=== PATIENT | female | born 1955 | race Hispanic/Latino ===

== ENCOUNTER 2017-03-07 12:41 | Emergency (ER) | payer BC, OTHER ==
[2017-03-07] MEDS ORDERED: Ondansetron HCl/PF 4 MG/2 ML Vial ONE (13:14)
[2017-03-07 13:29] LABS: Bilirubin Negative (Negative); Blood, Urine Large (Negative); Glucose, Urine (Dipstick) Negative (Negative); Leukocyte Negative (Negative); Nitrite Negative (Negative); Protein, Urine (Dipstick) 30 mg/dL (Neg-Trace); Specific Gravity, Urine 1.025 (1.005-1.030); Urobilinogen 0.2 mg/dL (0.2-1.0)
[2017-03-07 13:44] LABS: ALT (SGPT) 32 U/L (8-55); AST (SGOT) 22 U/L (5-34); Albumin 3.9 g/dL (3.4-4.8); Alkaline Phosphatase 66 U/L (40-150); Anion Gap 18 mmol/L (10-20); BUN (Urea Nitrogen) 15 mg/dL (9.8-20.1); Bilirubin, Total 0.5 mg/dL (0.2-1.2); Calc. Creatinine Clearance 0 mL/min (70-130); Calcium 9.1 mg/dL (7.8-10.44); Carbon Dioxide 20 mmol/L (23-31); Chloride 105 mmol/L (98-107); Estimated GFR-MDRD 69; Globulin 3.4 g/dL (2.4-3.5); Glucose 134 mg/dL (80-115); Lipase 35 U/L (8-78); Protein, Total 7.3 g/dL (6.0-8.3); Sodium 139 mmol/L (136-145)
[2017-03-07 13:52] LABS: Clarity SL HAZY (Clear)
[2017-03-07 13:54] LABS: RBC/HPF GREATER THAN 50-TNTC HPF (0-3); WBC/HPF 0-3 HPF (0-3)
[2017-03-07 13:55] LABS: Bacteria/HPF 2+ HPF (None Seen); Squamous Epithelial 0-3 HPF (0-3)
--- NOTE | 2017-03-07 14:05 | RAD ---
AP VIEW CHEST SUPINE AND UPRIGHT VIEWS OF ABDOMEN: Date: 03/07/17 HISTORY: Abdominal pain. FINDINGS: AP view of chest, as well as supine and upright views of abdomen obtained. The lungs are well aerated. No evidence of active intrathoracic disease seen. No evidence of effusion s, pneumonia, or pneumothorax seen. A small right upper lobe granuloma is present. Two views of abdomen demonstrate multilevel lumbar osteophytes and degenerative changes. Abdominal gas pattern is nonspecific. No evidence of obstruction or ileus seen. No dilated loops of b owel seen. IMPRESSION: 1. No evidence of acute intrathoracic abnormalities. 2. Unremarkable 2 views abdomen. POS: [facility]
[2017-03-07 14:18] LABS: Lymphocytes 20 % (21-51); MDiff Complete? YES; Mean Corpuscular HGB CONC 33.6 g/dL (32.0-36.0); Mean Corpuscular Hemoglobin 29.4 pg (27.0-31.0); Mean Corpuscular Volume 87.5 fl (81.0-99.0); Mean Platelet Volume 8.5 fL (7.4-10.4); Monocytes 4 % (0-10); Neutrophil 76 % (42-75); Platelet Count 291 thou/uL (130-400); RBC Distribution Width 11.5 % (11.5-14.5); Red Blood Cell (RBC) Count 4.43 mill/uL (4.20-5.40); White Blood Cell (WBC) Count 7.8 thou/uL (4.8-10.8)
[2017-03-07] MEDS ORDERED: Ketorolac Tromethamine 30 MG/ML VIAL ONE (14:25)
[2017-03-07] MEDS ORDERED: Sodium Chloride 0.9% 1,000 ML ONE (14:26)
--- NOTE | 2017-03-07 15:07 | CT ---
NONCONTRAST ENHANCED CT IMAGES OF ABDOMEN AND PELVIS: Date: 03/07/17 HISTORY: abdominal pain in the right lower quadrant. FINDINGS: Noncontrast enhanced CT images of the abdomen and pelvis obtained. The lung bases demonstrate some mild areas of atelectasis. No evidence of free intraperitoneal air is seen. The liver, spleen, gallbladder, and pancreas are unremarkable. Adrenal glands are unremarkable. The l eft kidney is unremarkable. The right kidney demonstrates a moderate degree of hydronephrosis with some fat stranding surrounding it. There is an approximately 6.0 mm proximal right ureteral calculus, which is in the proximal most aspect of the ureter resulting in right-sided hydroureteronephrosis. The small bowel is unremarkable . No evidence of colonic distention is seen. IMPRESSION: Obstructing proximal right renal calculus. POS: [facility]
== END 2017-03-07 15:24 | disposition home or self-care (01) ==
LOC: NAV ERS 12:41
DX: N13.2 Hydronephrosis with renal and ureteral calculous obstruction (principal); M19.90 Unspecified osteoarthritis, unspecified site
CPT/HCPCS: 74022; 74176; 80053; 81003; 81015; 83690; 85025; 96361; 96374; 96375; 96376; J1885; J2270; J2405; J7050

== ENCOUNTER 2017-05-03 09:55 | Emergency (ER) | payer OTHER, SELFPAY ==
[2017-05-03] MEDS ORDERED: Acetaminophen/Codeine 30-300mg Tablet ONE (10:27)
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
== END 2017-05-03 11:40 | disposition home or self-care (01) ==
LOC: NAV ERS 09:55
DX: S16.1XXA Strain of muscle, fascia and tendon at neck level, initial encounter (principal); S20.212A Contusion of left front wall of thorax, initial encounter; S29.012A Strain of muscle and tendon of back wall of thorax, initial encounter; M19.90 Unspecified osteoarthritis, unspecified site; Z79.899 Other long term (current) drug therapy; V89.2XXA Person injured in unspecified motor-vehicle accident, traffic, initial encounter
CPT/HCPCS: 71250; 72125

== ENCOUNTER 2017-05-10 08:14 | Emergency (ER) | payer OTHER, SELFPAY ==
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
== END 2017-05-10 09:57 | disposition home or self-care (01) ==
LOC: NAV ERS 08:14
DX: M62.838 Other muscle spasm (principal)
CPT/HCPCS: 72040